=== PATIENT | female | born 1995 | race American Indian/Alaskan Native ===

== ENCOUNTER 2018-02-01 09:48 | Emergency (ER) | payer MEDICAID ==
[~2018-02-01] VITALS: Ht 157.5 cm; Wt 58.0 kg
[~2018-02-01 09:48] MED LIST: CLIN-26 PO
[2018-02-01 10:36] LABS: BASOPHILS % (AUTO) 0.2 % (0-1); EOSINOPHILS # (AUTO) 0.1 X10'3 (0-0.9); EOSINOPHILS % (AUTO) 1.1 % (0-6); HEMATOCRIT 39.3 % (35.0-45.0); HEMOGLOBIN 13.3 g/dl (12.0-16.0); LYMPHOCYTES # (AUTO) 0.6 X10'3 (1.1-4.8); MEAN CORPUSCULAR HEMOGLOBIN 29.1 PG (27.0-31.0); MEAN CORPUSCULAR VOLUME 85.7 FL (78-98); MEAN PLATELET VOLUME 8.8 FL (7.4-10.4); MONOCYTES # (AUTO) 0.4 X10'3 (0-0.9); MONOCYTES % (AUTO) 4.9 % (2-12); NEUTROPHILS # (AUTO) 7.4 X10'3 (1.8-7.7); NEUTROPHILS % (AUTO) 86.8 % (42-75); PLATELET COUNT 223 X10'3 (140-440); RED BLOOD COUNT 4.58 X10'6 (4.20-5.60); WHITE BLOOD COUNT 8.5 X10'3 (4.5-11.0)
[2018-02-01 10:51] LABS: ALANINE AMINOTRANSFERASE 25 U/L (12-78); ALBUMIN/GLOBULIN RATIO 1.1 (1.1-1.5); ALKALINE PHOSPHATASE 68 IU/L (46-116); ANION GAP 9 (8-16); ASPARTATE AMINO TRANSFERASE 20 U/L (10-37); BILIRUBIN,TOTAL 0.6 MG/DL (0.1-1.0); BLOOD UREA NITROGEN 9 MG/DL (7-18); BUN/CREATININE RATIO 14.5 (6.6-38.0); CALCIUM 8.6 MG/DL (8.5-10.1); CHLORIDE 104 MMOL/L (99-107); CREATININE 0.62 MG/DL (0.40-0.90); GLUCOSE 122 MG/DL (70-104); LIPASE 170 U/L (73-393); POTASSIUM 4.1 MMOL/L (3.5-5.1); SODIUM 139 MMOL/L (135-145); TOTAL CARBON DIOXIDE 26.2 MMOL/L (24-32); TOTAL PROTEIN 7.7 G/DL (6.4-8.2); eGFR > 90 ML/MIN
[2018-02-01] MEDS ORDERED: IBUP-1984 PO (13:02)
[2018-02-01] MEDS ORDERED: TRAM50TA2 PO (13:02)
[2018-02-01 13:16] LABS: CLARITY,URINE CLOUDY (Clear); COLOR,URINE YELLOW (Yellow); GLUCOSE, URINE NEGATIVE (Neg); KETONES,URINE >=80 mg/dl (Neg); LEUKOCYTE ESTERASE ,URINE NEGATIVE (Neg); NITRITES, URINE NEGATIVE (Neg); OCCULT BLOOD,URINE NEGATIVE (Neg); PH,URINE 5.5 (4.8-8.0); PROTEIN,URINE 100 mg/dl (Neg)
[2018-02-01 13:17] LABS: URINE HCG NEGATIVE (NEG)
[2018-02-01 13:18] VITALS: BP 100/62
[2018-02-01 13:19] LABS: UA COLLECTION TYPE CLN CATCH MIDSTREAM
[2018-02-01 13:24] LABS: BACTERIA,URINE 2+ /HPF (Neg); MUCUS STRANDS MODERATE /LPF (Neg); RBC,URINE 0-2 /HPF (0-2); SQUAMOUS EPITHELIAL CELL,UR MODERATE /LPF (FEW); TRANSITIONAL EPI CELLS,URINE MODERATE /HPF; WBC,URINE 0-4 /HPF (0-4)
== END 2018-02-01 13:20 | disposition home or self-care (01) ==
LOC: ER 09:49
DX: N83.201 Unspecified ovarian cyst, right side (principal); Z90.49 Acquired absence of other specified parts of digestive tract; Z79.899 Other long term (current) drug therapy
CPT/HCPCS: 36415; 76856; 80053; 81001; 81025; 83690; 85025; 99285

== ENCOUNTER 2018-12-01 05:44 | Day surgery (SDC) | payer MEDICAID, OTHER ==
[2018-11-28 15:58] LABS: BASOPHILS % (AUTO) 0.5 % (0-1); EOSINOPHILS # (AUTO) 0.1 X10'3 (0-0.9); EOSINOPHILS % (AUTO) 1.9 % (0-6); LYMPHOCYTES # (AUTO) 2.1 X10'3 (1.1-4.8); LYMPHOCYTES % (AUTO) 37.7 % (21-51); MEAN CORPUSCULAR HEMOGLOBIN 28.4 PG (27.0-31.0); MEAN CORPUSCULAR HGB CONC 33.2 % (33.0-36.5); MEAN CORPUSCULAR VOLUME 85.6 FL (78-98); MEAN PLATELET VOLUME 8.9 FL (7.4-10.4); MONOCYTES # (AUTO) 0.5 X10'3 (0-0.9); MONOCYTES % (AUTO) 8.2 % (2-12); NEUTROPHILS # (AUTO) 2.9 X10'3 (1.8-7.7); NEUTROPHILS % (AUTO) 51.7 % (42-75); PRE OP HEMATOCRIT 36.1 % (35.0-45.0); PRE OP PLATELET COUNT 255 X10'3 (140-440); RED BLOOD COUNT 4.22 X10'6 (4.20-5.60); RED CELL DISTRIBUTION WIDTH 15.1 % (11.5-14.5)
[2018-11-28 16:34] LABS: HCG SERUM QL NEGATIVE
[~2018-12-01] VITALS: Ht 157.5 cm; Wt 57.6 kg
[2018-12-01] VITALS (8 sets, daily range): BP systolic 92–112; BP diastolic 46–66
[~2018-12-01 05:44] MED LIST changes: -CLIN-26 PO; +NO HOME MEDS; +famotidine 20mg tablet PO ONE; +ringers solution, lacted 1,000 ML IV SCH
[2018-12-01] MEDS ORDERED: BUPIVAcaine/PF 2.5mg/ml (0.25%) 10ml vial ONE (06:52)
[2018-12-01] MEDS ORDERED: fentaNYL/PF 50MCG/1 ML 2ML syringe ONE (07:26)
[2018-12-01] MEDS ORDERED: midazolam 2 mg/2 ml injection ONE (07:27)
[2018-12-01] MEDS ORDERED: ringers solution, lacted 1,000 ML IV SCH (07:49)
[2018-12-01] MEDS ORDERED: ondansetron/PF 4mg/2ml inj IV PRN (07:50)
[2018-12-01] MEDS ORDERED: proCHLORperazine 10 MG/2 ml inj IV PRN (07:50)
[2018-12-01] MEDS ORDERED: meperidine/PF 25mg/ml syringe IV PRN ×3 (07:50)
[2018-12-01] MEDS ORDERED: morphine 4 MG/ML inj SYRINge IV PRN ×2 (07:50)
[2018-12-01] MEDS ORDERED: rocuronium 10mg/ml inj IV ONE (08:05)
[2018-12-01] MEDS ORDERED: LIDOcaine 1%/PF 5ML 10 MG/ML VIAL ONE (08:05)
[2018-12-01] MEDS ORDERED: dexamethasone sod phosphate 4mg/ml inj. ONE (08:16)
[2018-12-01] MEDS ORDERED: ondansetron/PF 4mg/2ml inj ONE (08:18)
[2018-12-01] MEDS ORDERED: ketorolac trometh. 30mg/ml inj. ONE (08:47)
[2018-12-01] MEDS ORDERED: neostigmine methylsulfate 1 MG/ML 10ml vial ONE (08:52)
[2018-12-01] MEDS ORDERED: glycopyrrolate 0.2mg/ml inj ONE (08:52)
--- NOTE | 2018-12-01 09:04 | NUR ---
Received from OR via [facility] , accompanied by Anesthesiologist CHERRIE and report given by Anesthesiolgist. PATIENT WITH 20G PIV IN LEFT UE RUNNING LR AT 100. DENIES PAIN AT THIS TIME. 3 ABDOMINAL BANDAIDS PRESENT THAT ARE CDI, ONE YOLY PAD IN PLACE AND IS CLEAN WELL. 10L MASK ON WITH 100% SATURATIONS. GIANNI DOTSON FOR COMFORT. Addendum: 12/01/18 at 0924 by Juan Rushing RN, RN Amended: Links added.
[2018-12-01] MEDS ORDERED: oxyCODONE/APAP 5-325mg tablet PO ONE (09:45)
--- NOTE | 2018-12-01 09:54 | NUR ---
ALL DC CRITERIA HAS BEEN MET, ALL QUESTIONS ANSWERED REGARDING DC PAPERWORK. IV OUT WITHOUT COMPLICATIONS. MOTHER PRESENT FOR DC INSTRUCTIONS AND ASSISTED PATIENT IN DONNING CLOTHES. VSS. PAIN TOLERABLE AT THIS TIME. OUT VIA WHEELCHAIR TO PERSONAL VEHICLE WHERE SHE WAS TAKEN HOME BY HER MOTHER. Addendum: 12/01/18 at 1001 by Juan Rushing RN, RN Amended: Links added.
== END 2018-12-01 09:54 | disposition home or self-care (01) ==
LOC: PAS 05:44
PROVIDERS: ATTEND Obstetrics & Gynecology
DX: D27.0 Benign neoplasm of right ovary (principal); Z90.49 Acquired absence of other specified parts of digestive tract; Z79.899 Other long term (current) drug therapy; Z82.49 Family history of ischemic heart disease and other diseases of the circulatory system; Z80.0 Family history of malignant neoplasm of digestive organs
CPT/HCPCS: 36415; 58662; 82948; 84703; 85025; 86885; 86900; 86901; J1100; J1885; J2001; J2175; J2250; J2405; J2710; J3010; J3490; J7120; A6250; A7000